=== PATIENT | female | born 2000 | race African-American/Black ===

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

== ENCOUNTER 2022-06-21 18:01 | Emergency (ER) | payer OTHER ==
[~2022-06-21] VITALS: Ht 160 cm; Wt 44.0 kg
[~2022-06-21 18:01] MED LIST changes: +DIPH25TA62 MT; +FAMO40TA70 MT
[2022-06-21 18:24] VITALS: BP 121/76
[2022-06-22] MEDS ORDERED: FAMO-135 MT (13:34)
[2022-06-22] MEDS ORDERED: DIPH25CA83 MT (13:34)
[2022-06-22] MEDS ORDERED: P20 MT (13:34)
== END 2022-06-21 21:53 | disposition left against medical advice (07) ==
LOC: ER 18:01
DX: Z53.21 Procedure and treatment not carried out due to patient leaving prior to being seen by health care provider (principal)

== ENCOUNTER 2022-06-22 10:31 | Emergency (ER) | payer OTHER ==
[~2022-06-22] VITALS: Ht 165.1 cm; Wt 66.0 kg
[2022-06-22 10:42] VITALS: BP 111/70
[2022-06-22] MEDS ORDERED: PREDNISONE 20MG TABLET PO ONE (12:30)
[2022-06-22] MEDS ORDERED: FAMOTIDINE 20MG TABLET PO ONE (12:30)
[2022-06-22] MEDS ORDERED: DIPH25CA83 MT (13:34)
[2022-06-22] MEDS ORDERED: FAMO-135 MT (13:34)
[2022-06-22] MEDS ORDERED: P20 MT (13:34)
== END 2022-06-22 14:13 | disposition home or self-care (01) ==
LOC: ER 10:31
DX: T78.1XXA Other adverse food reactions, not elsewhere classified, initial encounter (principal); H05.223 Edema of bilateral orbit; L27.2 Dermatitis due to ingested food; R06.02 Shortness of breath; X58.XXXA Exposure to other specified factors, initial encounter; Y93.89 Activity, other specified; Z91.013 Allergy to seafood; Z91.018 Allergy to other foods; Y92.89 Other specified places as the place of occurrence of the external cause
CPT/HCPCS: 81025; 99283; J7512

== ENCOUNTER 2023-01-31 15:39 | Observation (INO) | payer MEDICAID, OTHER ==
[~2023-01-31] VITALS: Ht 160 cm; Wt 49.4 kg
[~2023-01-31 15:39] MED LIST changes: +DIPH25CA83 MT; +FAMO-135 MT; +P20 MT
[2023-01-31] MEDS ORDERED: DEXT 5%/LACTATED RINGERS 1,000 ML IV ONE (16:45)
== END 2023-01-31 17:50 | disposition home or self-care (01) ==
LOC: ER 15:39 → 8 EST LDRP 16:57
PROVIDERS: ADMIT Obstetrics & Gynecology; ATTEND Obstetrics & Gynecology
DX: O26.893 Other specified pregnancy related conditions, third trimester (principal); R42 Dizziness and giddiness; Z3A.35 35 weeks gestation of pregnancy
CPT/HCPCS: 59025; 96360; G0378; 99281; G0379

== ENCOUNTER 2023-03-04 16:13 | Observation (INO) | payer OTHER ==
[~2023-03-04] VITALS: Ht 160 cm; Wt 52.2 kg
[2023-03-04] MEDS ORDERED: ACETAMINOPHEN 500MG TABLET PO NR (18:30)
[2023-03-04] MEDS ORDERED: ONDANSETRON HCL 4MG/2ML INJ IM NR (18:30)
[2023-03-04 19:08] LABS: BASOPHILS % 0.3 % (0.0-2.0); EOSINOPHILS % 0.4 % (0.0-5.0); HEMATOCRIT. 33.7 % (36.0-48.0); HEMOGLOBIN. 11.3 g/dL (12.0-16.0); LYMPHOCYTES % 23.5 % (20.0-50.0); MEAN CORPUSCULAR HEMOGLOBIN 29.2 pg (28.0-32.0); MEAN CORPUSCULAR VOLUME 87.5 fL (81.0-99.0); MEAN PLATELET VOLUME 6.9 fl (7.4-10.4); MONOCYTES % 7.8 % (2.0-8.0); PLATELET 304 x1000/uL (130-400); RED BLOOD CELL COUNT 3.86 mill/uL (4.2-5.4); RED CELL DISTRIBUTION WIDTH 13.2 % (11.6-14.6)
[2023-03-04 19:13] LABS: CLARITY URINE CLOUDY (CLEAR); COLOR URINE DARK YELLOW (YELLOW); KETONES URINE TRACE (NEGATIVE); LEUKOCYTE ESTERASE URINE 2+ (NEGATIVE); NITRITE URINE NEGATIVE (NEGATIVE); OCCULT BLOOD URINE NEGATIVE (NEGATIVE); PH URINE 6.5 (4.5-8.0); PROTEIN URINE 1+ (NEGATIVE)
[2023-03-04 19:18] LABS: CHLORIDE 100 mEq/L (98-107)
[2023-03-04] MEDS ORDERED: POTASSIUM CHLORIDE 20MEQ TABLET SR PO NR (21:00)
[2023-03-04] MEDS ORDERED: PNV1TABL50 MT (21:17)
== END 2023-03-04 21:30 | disposition home or self-care (01) ==
LOC: 8 EST LDRP 16:13
PROVIDERS: ADMIT Obstetrics & Gynecology; ATTEND Obstetrics & Gynecology
DX: O26.893 Other specified pregnancy related conditions, third trimester (principal); R10.9 Unspecified abdominal pain; O62.9 Abnormality of forces of labor, unspecified; Z3A.36 36 weeks gestation of pregnancy
CPT/HCPCS: 59025; 96372; 80053; 81003; 85025; 36415; J2405; 99281; G0378

== ENCOUNTER 2024-04-25 01:18 | Emergency (ER) | payer MEDICAID, OTHER ==
[~2024-04-25] VITALS: Ht 160 cm; Wt 53.0 kg
[~2024-04-25 01:18] MED LIST changes: -DIPH25CA83 MT; -DIPH25TA62 MT; -DOCU-138 MT; -FAMO-135 MT; -FAMO40TA70 MT; -IBUP-2028 MT; -NAPR-677 MT; -NITR-87 MT; -P20 MT; +PNV1TABL50 MT; -PYR200 MT; -SULF1TAB48 MT
[2024-04-25 01:26] VITALS: O2SAT 100
[2024-04-25 02:10] LABS: BASOPHILS % 0.5 % (0.0-2.0); EOSINOPHILS % 0.6 % (0.0-5.0); HEMATOCRIT. 38.7 % (36.0-48.0); HEMOGLOBIN. 12.6 g/dL (12.0-16.0); LYMPHOCYTES % 37.8 % (20.0-50.0); MEAN CORPUSCULAR HEMOGLOBIN 28.6 pg (28.0-32.0); MEAN CORPUSCULAR HGB CONC 32.6 g/dL (31.0-37.0); MEAN CORPUSCULAR VOLUME 87.7 fL (81.0-99.0); NEUTROPHILS % 56.1 % (40.0-76.0); PLATELET 287 x1000/uL (130-400); RED BLOOD CELL COUNT 4.41 mill/uL (4.2-5.4); RED CELL DISTRIBUTION WIDTH 15.5 % (11.6-14.6)
[2024-04-25 02:21] LABS: CHLORIDE 108 mEq/L (98-107); POTASSIUM 3.6 mEq/L (3.5-5.1); SODIUM 138 mEq/L (136-145)
[2024-04-25 02:22] LABS: CALCIUM 9.1 mg/dL (8.7-10.4); CARBON DIOXIDE 24 mEq/L (21-32)
[2024-04-25 02:27] LABS: CREATININE 0.7 mg/dL (0.6-1.0); GLUCOSE 91 mg/dL (70-105)
[2024-04-25] MEDS: ACETAMINOPHEN 325MG TABLET PO ONE (02:36)
[2024-04-25 02:41] LABS: B-HCG QUANTITATIVE 11833 mIU/mL (<3); UREA NITROGEN BLOOD < 5 mg/dL (9-23)
[2024-04-25 05:24] VITALS: BP 109/64; PULSE 88; RESP 18; TEMP 98.3
== END 2024-04-25 06:21 | disposition home or self-care (01) ==
LOC: ER 01:18
DX: O20.0 Threatened abortion (principal); Z3A.01 Less than 8 weeks gestation of pregnancy
CPT/HCPCS: 36415; 76801; 80048; 84702; 85025; 86850; 86900; 99284